=== PATIENT | female | born 1995 | race Two or more races ===

== ENCOUNTER 2019-01-02 19:09 | Emergency (ER) | payer OTHER ==
[~2019-01-02] VITALS: Ht 152.4 cm; Wt 65.8 kg
[2019-01-02 23:28] VITALS: BP 112/76
[2019-01-03] MEDS: IBUPROFEN 800 MG TAB PO ONE (00:21)
== END 2019-01-03 00:46 | disposition home or self-care (01) ==
LOC: ER 19:17
DX: S60.022A Contusion of left index finger without damage to nail, initial encounter (principal); R42 Dizziness and giddiness; R51 Headache; W22.8XXA Striking against or struck by other objects, initial encounter; Y93.89 Activity, other specified; Y92.69 Other specified industrial and construction area as the place of occurrence of the external cause; Y99.8 Other external cause status
CPT/HCPCS: 29130; 73140; 81025